=== PATIENT | female | born 1935 | race Caucasian/White ===

== ENCOUNTER 2025-01-26 14:49 | Observation (INO) | payer MEDICARE ==
--- NOTE | 2025-01-26 15:29 | ED ---
Recheck HPI - General Chief Complaint: Recheck/Abnormal Lab/Rx Stated Complaint: Abn labs Time Seen by Provider: 01/26/25 15:19 Source: patient, family, RN notes reviewed Mode of arrival: wheelchair Limitations: no limitations - History of Present Illness Initial Comments: 89-year-old female with history of hypertension and diabetes presenting to the emergency department for complaints of abnormal labs. Patient states that yesterday she had out patient labs ordered by her primary care provider with concerns for weakness. Patient states that she had labs drawn as a thought that she may have been anemic however she was instructed to report to the emergency department for low sodium level. Patient denies history of low sodium. She denies diuretic medication use. Patient denies headaches, chest pain, heart palpitations, peripheral edema, abdominal pain, nausea or vomiting. States that over the past 2 weeks she has been feeling "generally weak ". Denies exertional dyspnea. Is presenting for further evaluation. - Related Data Home Medications Medication Instructions Recorded Confirmed Donepezil HCl [Aricept] 10 mg PO DAILY 01/26/25 01/26/25 Ezetimibe [Zetia] 10 mg PO DAILY 01/26/25 01/26/25 Insulin Degludec [Tresiba 55 units SQ HS 01/26/25 01/26/25 Flextouch U-100 Pen] Omeprazole [PriLOSEC] 20 mg PO DAILY 01/26/25 01/26/25 cycloSPORINE 0.05% OPHTH SOLN 1 drop BOTH EYES BID 01/26/25 01/26/25 [Restasis] hydroCHLOROthiazide [Hydrodiuril] 12.5 mg PO HS 01/26/25 01/26/25 lisinopriL [Zestril] 40 mg PO DAILY 01/26/25 01/26/25 metFORMIN HCL [Glucophage] 1,000 mg PO BID 01/26/25 01/26/25 rOPINIRole HCL [Requip] 0.25 mg PO DIRECTED 01/26/25 01/26/25 Allergies Allergy/AdvReac Type Severity Reaction Status Date / Time No Known Allergies Allergy Verified 01/26/25 15:40 Review of Systems ROS Statement: Those systems with pertinent positive or pertinent negative responses have been documented in the HPI. ROS Other: All systems not noted in ROS Statement are negative. Past Medical History Past Medical History: Diabetes Mellitus, Hypertension Additional Past Surgical History / Comment(s): pacemaker 2 months ago. Past Psychological History: No Psychological Hx Reported Smoking Status: Never smoker Past Alcohol Use History: None Reported Past Drug Use History: None Reported General Exam Limitations: no limitations General appearance: alert, in no apparent distress Neck exam: Present: normal inspection. Absent: tenderness, meningismus, lymphadenopathy Respiratory exam: Present: normal lung sounds bilaterally. Absent: respiratory distress, wheezes, rales, rhonchi, stridor Cardiovascular Exam: Present: regular rate, normal rhythm, normal heart sounds. Absent: systolic murmur, diastolic murmur, rubs, gallop, clicks GI/Abdominal exam: Present: soft, normal bowel sounds. Absent: distended, tenderness, guarding, rebound, rigid Extremities exam: Present: normal inspection, full ROM, normal capillary refill. Absent: tenderness, pedal edema, joint swelling, calf tenderness Course Vital Signs 01/26/25 01/26/25 14:56 18:17 Temperature 97.4 F L Pulse Rate 75 71 Respiratory 16 18 Rate Blood Pressure 166/68 193/79 O2 Sat by Pulse 95 97 Oximetry Medical Decision Making - Medical Decision Making Was pt. sent in by a medical professional or institution (, PA, [employer] EXAMINER, urgent care, hospital, or fpc...) When possible be specific @ -Patient is advised by primary care provider to report to the emergency department for low sodium. Did you speak to anyone other than the patient for history (EMS, parent, family, police, friend...)? What history was obtained from this source @ -No Did you review nursing and triage notes (agree or disagree)? Why? @ -I reviewed and agree with nursing and triage notes Were old charts reviewed (outside hosp., previous admission, EMS record, old EKG, old radiological studies, urgent care reports/EKG's, fpc records)? Report findings @ -No old charts were reviewed Differential Diagnosis (chest pain, altered mental status, abdominal pain women, abdominal pain men, vaginal bleeding, weakness, fever, dyspnea, syncope, headache, dizziness, GI bleed, back pain, seizure, CVA, palpatations, mental health, musculoskeletal)? @ -Differential Weakness: Hypoglycemia, shock, sepsis, hyponatremia, anemia, infection, CO, ETOH, adverse medicine reaction, overdose, stroke, this is not meant to be an all-inclusive list. EKG interpreted by me (3pts min.). @ -None X-rays interpreted by me (1pt min.). @ -None done CT interpreted by me (1pt min.). @ -None done U/S interpreted by me (1pt. min.). @ -None done What testing was considered but not performed or refused? (CT, X-rays, U/S, labs)? Why? @ -None What meds were considered but not given or refused? Why? @ -None Did you discuss the management of the patient with other professionals (professionals i.e. , PA, [employer] EXAMINER, lab, RT, psych nurse, forensic social worker, title lawyer, teacher, security public safety officer, patient case coordinator)? Give summary @ -spoke with BELLE Schroeder, for admission Was smoking cessation discussed for >3mins.? @ -No Was critical care preformed (if so, how long)? @ -No Were there social determinants of health that impacted care today? How? (Homelessness, low income, unemployed, alcoholism, drug addiction, transportation, low edu. Level, literacy, decrease access to med. care, usp, rehab)? @ -No Was there de-escalation of care discussed even if they declined (Discuss DNR or withdrawal of care, Hospice)? DNR status @ -No What co-morbidities impacted this encounter? (DM, HTN, Smoking, COPD, CAD, Cancer, CVA, ARF, Chemo, Hep., AIDS, mental health diagnosis, sleep apnea, m orbid obesity)? @ -None Was patient admitted / discharged? Hospital course, mention meds given and r oute, prescriptions, significant lab abnormalities, going to OR and other pertinent info. @ -Admitted. 89-year-old female presenting to emergency room with complaints of abnormal labs. Overall patient is well-appearing and physical examination is unremarkable. Patient's labs are concerning for a hyponatremia with a sodium of 125 and a chloride of 90. Urinalysis no signs of infection. Patient will be admitted to internal medicine for fluid resuscitation. Case discussed with my attending Dr. Villarreal. Undiagnosed new problem with uncertain prognosis? @ -No Drug Therapy requiring intensive monitoring for toxicity (Heparin, Nitro, Insulin, Cardizem)? @ -No Were any procedures done? @ -No Diagnosis/symptom? @ -Hyponatremia Acute, or Chronic, or Acute on Chronic? @ -Acute Uncomplicated (without systemic symptoms) or Complicated (systemic symptoms)? @ -Complicated Side effects of treatment? @ -No Exacerbation, Progression, or Severe Exacerbation? @ -No Poses a threat to life or bodily function? How? (Chest pain, USA, CO, pneumonia, PE, COPD, DKA, ARF, appy, cholecystitis, CVA, Diverticulitis, Homicidal, Suicidal, threat to staff... and all critical care pts) @ -No - Lab Data Result diagrams: 01/26/25 15:40 01/26/25 15:40 Lab Results 01/26/25 01/26/25 01/26/25 Range/Units 15:40 15:40 15:40 WBC 11.93 H (4.50-10.00) 10*3/uL RBC 3.55 L (4.10-5.20) 10*6/uL Hgb 10.0 L (12.0-15.0) g/dL Hct 30.1 L (37.2-46.3) % MCV 84.8 (80.0-97.0) fL MCH 28.2 (27.0-32.0) pg MCHC 33.2 (32.0-37.0) g/dL Plt Count 408 (140-440) 10*3/uL MPV 9.0 L (9.5-12.2) fL Immature Gran % (Auto) 0.2 % Neutrophils % 67.9 % Lymphocytes % 17.4 % Monocytes % 6.3 % Eosinophils % 7.9 % Basophils % 0.3 % Immature Gran # 0.02 (0.00-0.04) 10*3/uL Neutrophils # 8.12 H (1.80-7.70) 10*3/uL Lymphocytes # 2.07 (0.90-5.00) 10*3/uL Monocytes # 0.75 (0.20-1.00) 10*3/uL Eosinophils # 0.94 H (0.04-0.35) 10*3/uL Basophils # 0.03 (0.00-0.10) 10*3/uL Sodium 125 L (137-145) mmol/L Potassium 4.7 (3.5-5.1) mmol/L Chloride 90 L (98-107) mmol/L Carbon Dioxide 22 (22-30) mmol/L Anion Gap 13 mmol/L BUN 15 (7-17) mg/dL Creatinine 0.62 (0.52-1.04) mg/dL Est GFR (CKD-EPI)AfAm >90 (>60 ml/min/1.73 sqM) Est GFR (CKD-EPI)NonAf 81 (>60 ml/min/1.73 sqM) Glucose 140 H (74-99) mg/dL Calcium 9.7 (8.4-10.2) mg/dL Magnesium 1.8 (1.6-2.3) mg/dL Total Bilirubin 0.9 (0.2-1.3) mg/dL AST 36 (14-36) U/L ALT 20 (4-34) U/L Alkaline Phosphatase 84 (38-126) U/L Total Protein 7.8 (6.3-8.2) g/dL Albumin 4.4 (3.5-5.0) g/dL Urine Color Light Yellow Urine Appearance Clear (Clear) Urine pH 6.0 (5.0-8.0) Ur Specific Simpson 1.013 (1.001-1.035) Urine Protein 1+ H (Negative) Urine Glucose (UA) Negative (Negative) Urine Ketones Negative (Negative) Urine Blood Negative (Negative) Urine Nitrite Negative (Negative) Urine Bilirubin Negative (Negative) Urine Urobilinogen <2.0 (<2.0) mg/dL Ur Leukocyte Esterase Negative (Negative) Urine RBC <1 (0-5) /hpf Urine WBC 1 (0-5) /hpf Ur Squamous Epith Cells 3 (0-4) /hpf Disposition Clinical Impression: Hyponatremia Disposition: ADMITTED IP TO THIS [facility] Condition: Stable Referrals: Christopher Saenz DO [Primary Care Provider] - 1-2 days Decision to Admit Reason: Admit from EC Decision Date: 01/26/25 Decision Time: 19:02
[2025-01-26 15:46] LABS: Basophils # (A) 0.03 10*3/uL (0.00-0.10); Basophils % (A) 0.3 %; Eosinophils # (A) 0.94 10*3/uL (0.04-0.35); Eosinophils % (A) 7.9 %; HCT 30.1 % (37.2-46.3); Lymphocytes # (A) 2.07 10*3/uL (0.90-5.00); Lymphocytes % (A) 17.4 %; MCH 28.2 pg (27.0-32.0); MCHC 33.2 g/dL (32.0-37.0); MCV 84.8 fL (80.0-97.0); Monocytes # (A) 0.75 10*3/uL (0.20-1.00); Monocytes % (A) 6.3 %; Neutrophils # (A) 8.12 10*3/uL (1.80-7.70); Neutrophils % (A) 67.9 %; Platelet Count 408 10*3/uL (140-440); RBC 3.55 10*6/uL (4.10-5.20); RDW 13.9 % (11.5-14.5); WBC 11.93 10*3/uL (4.50-10.00)
[2025-01-26 16:00] LABS: ALT 20 U/L (4-34); AST 36 U/L (14-36); African American GFR (CKD) >90 (>60 ml/min/1.73 sqM); Albumin 4.4 g/dL (3.5-5.0); Alkaline Phosphatase 84 U/L (38-126); Anion Gap 13 mmol/L; Blood Urea Nitrogen 15 mg/dL (7-17); Calcium 9.7 mg/dL (8.4-10.2); Carbon Dioxide 22 mmol/L (22-30); Chloride 90 mmol/L (98-107); Glucose 140 mg/dL (74-99); Magnesium 1.8 mg/dL (1.6-2.3); Non-African American GFR(CKD) 81 (>60 ml/min/1.73 sqM); Potassium 4.7 mmol/L (3.5-5.1); Sodium 125 mmol/L (137-145); Total Bilirubin 0.9 mg/dL (0.2-1.3); Total Protein 7.8 g/dL (6.3-8.2)
[2025-01-26 16:04] LABS: Appearance,Urine Clear (Clear); Bilirubin,Urine Negative (Negative); Blood,Urine Negative (Negative); Color,Urine Light Yellow; Glucose,Urine (UA) Negative (Negative); Ketones,Urine Negative (Negative); Leukocyte Esterase,Urine Negative (Negative); Nitrite,Urine Negative (Negative); Protein,Urine 1+ (Negative); RBC,Urine <1 /hpf (0-5); Specific Gravity,Urine 1.013 (1.001-1.035); Squamous Epithelial Cell,Urine 3 /hpf (0-4); Urobilinogen,Urine <2.0 mg/dL (<2.0); WBC,Urine 1 /hpf (0-5)
[2025-01-26] MEDS: SODIUM CHLORIDE 0.9% 1,000 ML IV SCH (18:14)
[2025-01-26] MEDS: hydrALAZINE HCL 20 MG/ML 1 ML VIAL IVP STA (18:38)
[2025-01-26] MEDS ORDERED: NALOXONE 0.4 MG/ML 1 ML VIAL IV PRN (18:57)
[2025-01-26] MEDS ORDERED: SODIUM CHLORIDE 0.9% 1,000 ML IV SCH (19:00)
[2025-01-27 03:46] LABS: Basophils # (A) 0.02 10*3/uL (0.00-0.10); Basophils % (A) 0.2 %; Eosinophils # (A) 1.37 10*3/uL (0.04-0.35); Eosinophils % (A) 14.8 %; HCT 29.9 % (37.2-46.3); HGB 9.3 g/dL (12.0-15.0); Lymphocytes # (A) 1.79 10*3/uL (0.90-5.00); Lymphocytes % (A) 19.4 %; MCH 27.1 pg (27.0-32.0); MCHC 31.1 g/dL (32.0-37.0); MCV 87.2 fL (80.0-97.0); Mean Platelet Volume 10.7 fL (9.5-12.2); Monocytes # (A) 0.83 10*3/uL (0.20-1.00); Neutrophils # (A) 5.21 10*3/uL (1.80-7.70); Neutrophils % (A) 56.3 %; Platelet Count 278 10*3/uL (140-440); RBC 3.43 10*6/uL (4.10-5.20); WBC 9.25 10*3/uL (4.50-10.00)
[2025-01-27 07:39] VITALS: TEMP 97.5
[2025-01-27] MEDS ORDERED: DEXTROSE 50% SYRINGE 50 ML IVP PRN ×2 (10:11)
[2025-01-27 10:22] LABS: ALT 18 U/L (8-44); AST 28 U/L (13-35); Albumin 3.9 g/dL (3.8-4.9); Albumin/Globulin Ratio 1.34 Ratio (1.60-3.17); Alkaline Phosphatase 88 U/L (41-126); BUN/Creat Ratio 19.33 Ratio (12.00-20.00); Blood Urea Nitrogen 11.6 mg/dL (9.0-27.0); Calcium 9.4 mg/dL (8.7-10.3); Carbon Dioxide 23.6 mmol/L (21.6-31.8); Chloride 95 mmol/L (96-109); Globulin 2.9 g/dL (1.6-3.3); Glucose 113 mg/dL (70-110); Potassium 4.2 mmol/L (3.5-5.5); Sodium 129 mmol/L (135-145); Total Bilirubin 0.4 mg/dL (0.3-1.2); Total Protein 6.8 g/dL (6.2-8.2)
[2025-01-27] MEDS: cycloSPORINE 0.05% OPHTH 0.4 ML DROPERETTE BOTH EYES SCH (11:38)
[2025-01-27] MEDS: EZETIMIBE 10 MG TAB PO SCH (11:39)
[2025-01-27] MEDS: DONEPEZIL 10 MG TAB PO SCH (11:39)
[2025-01-27] MEDS: lisinopriL 20 MG TAB PO SCH (11:40)
[2025-01-27 12:18] LABS: Glucose,Whole Blood 271 mg/dL (70-110)
[2025-01-27] MEDS: INSULIN LISPRO (HumaLOG) 100 UNIT/ML 10 mL VL SQ SCH (13:02)
[2025-01-27] MEDS: amLODIPine 5 MG TAB PO SCH (16:45)
[2025-01-27 17:24] LABS: Glucose,Whole Blood 190 mg/dL (70-110)
[2025-01-27 19:23] LABS: African American GFR (CKD) 82 (>60 ml/min/1.73 sqM); Anion Gap 7 mmol/L; Blood Urea Nitrogen 11 mg/dL (7-17); Calcium 9.1 mg/dL (8.4-10.2); Carbon Dioxide 24 mmol/L (22-30); Chloride 100 mmol/L (98-107); Glucose 179 mg/dL (74-99); Non-African American GFR(CKD) 71 (>60 ml/min/1.73 sqM); Potassium 4.7 mmol/L (3.5-5.1); Sodium 131 mmol/L (137-145)
[2025-01-27 20:35] VITALS: BP 170/68; PULSE 95; RESP 18
[2025-01-27] MEDS ORDERED: INSULIN GLARGINE (LANTUS) 100 UNIT/ML SYR SQ SCH (21:00)
== END 2025-01-27 20:19 | disposition home or self-care (01) ==
LOC: EDSEX → EC 14:49 → 6NMEDSUR 18:58
PROVIDERS: ADMIT Internal Medicine; ATTEND Internal Medicine
DX: E87.1 Hypo-osmolality and hyponatremia (principal); E11.9 Type 2 diabetes mellitus without complications; I10 Essential (primary) hypertension; Z95.0 Presence of cardiac pacemaker; Z79.4 Long term (current) use of insulin; Z79.84 Long term (current) use of oral hypoglycemic drugs; Z79.899 Other long term (current) drug therapy
CPT/HCPCS: 96374; 99285; 36415; 80053 ×2; 80048; 83735; 85025 ×2; 81001; G0378 ×2; J0360